=== PATIENT | male | born 1985 | race Hispanic/Latino ===

== ENCOUNTER 2024-01-03 11:46 | Emergency (ER) | payer SELFPAY ==
[~2024-01-03] VITALS: Ht 165.1 cm; Wt 72.6 kg
[2024-01-03 11:46] VITALS: BP 138/93; PULSE 117; RESP 18; TEMP 98.6; O2SAT 96
[2024-01-03 12:05] LABS: BASOPHIL # 0.1 10^3/uL (0.0-0.1); BASOPHIL % 0.6 % (0.2-1.2); EOSINOPHIL # 0.2 10^3/uL (0.0-0.2); EOSINOPHIL % 1.9 % (0.0-5.0); HEMATOCRIT(ML) 46.5 % (37.0-53.0); HEMOGLOBIN 15.9 g/dL (13.9-16.3); LYMPHOCYTES # 2.26 10^3/uL1 (1.0-4.8); MEAN CORP HGB 31.2 pg (26-34); MEAN CORP HGB CONCENTRATION 34.2 g/dL (33-36.5); MEAN CORP VOLUME 91.2 fL (78-100); MONOCYTES # 0.7 10^3/uL (0.3-0.8); MONOCYTES % 8.5 % (5.0-12.0); NEUTROPHIL # 4.6 10^3/uL (1.8-7.7); NEUTROPHILS % 58.7 % (41.0-85.0); PLATELET COUNT 226 10^3/uL (150-400); RED CELL DISTRIBUTION WIDTH 12.4 % (11.5-14.5); WHITE BLOOD CELL 7.8 10^3/uL (4.5-11.0)
[2024-01-03] MEDS ORDERED: KEPPRA 100 ML IV ONE (12:05)
[2024-01-03] MEDS ORDERED: NS 1000ML 1,000 ML ONE (12:05)
[2024-01-03 12:09] LABS: +ADD MANUAL DIFF(NO CHRG) NO
[2024-01-03] MEDS: KEPPRA 100 ML IV STA (12:13)
[2024-01-03] MEDS: NS 1000ML 1,000 ML STA (12:13)
[2024-01-03 12:22] LABS: INR 1.1; PROTHROMBIN PROTIME 11.4 SEC (9.7-11.6)
[2024-01-03 12:23] LABS: ALBUMIN(ML) 3.3 g/dL (3.4-5.0); ANION GAP 14.7; BUN/CREATININE RATIO 6.93 (10.0-20.0); CALCIUM 8.1 mg/dL (8.4-10.5); CARBON DIOXIDE 22.8 mmol/L (20.0-32); CREATININE SERUM 1.01 mg/dL (0.59-1.40); EST GFR, NON-AA 81.4 (>/=60); POTASSIUM 3.5 mmol/L (3.6-5.2)
[2024-01-03 12:43] VITALS: BP 117/52; PULSE 72; RESP 18; TEMP 98.6; O2SAT 96
== END 2024-01-03 12:52 | disposition home or self-care (01) ==
LOC: ER 11:46
DX: T67.1XXA Heat syncope, initial encounter (principal); X58.XXXA Exposure to other specified factors, initial encounter; Y93.89 Activity, other specified; Y92.89 Other specified places as the place of occurrence of the external cause; Y99.8 Other external cause status
CPT/HCPCS: 99285; 96365; 70450; 71045; 80053; 85025; 82948; 36415; 84484; 85610; 85730; 93005; J7030; J1953